=== PATIENT | female | born 1945 | race Caucasian/White ===

== ENCOUNTER 2016-10-03 14:09 | Day surgery (SDC) | payer MEDICARE, BC ==
[~2016-10-03] VITALS: Ht 154.9 cm; Wt 97.7 kg
[2016-10-03] MEDS ORDERED: TOPROL XL100 MG PO (15:13)
[2016-10-03] MEDS ORDERED: COZAAR 50MG50 MG/TAB PO (15:14)
[2016-10-03] MEDS ORDERED: CATAPRES 0.1MG0.1 MG PO (15:14)
[2016-10-03] MEDS ORDERED: NORVASC 5MG5 MG/TAB PO (15:16)
[2016-10-03] MEDS ORDERED: APRESOLINE 25MG25 MG PO (15:17)
[2016-10-03] MEDS ORDERED: DEMADEX100 MG PO (15:17)
[2016-10-03] MEDS ORDERED: AMARYL4 MG PO (15:18)
[2016-10-03] MEDS ORDERED: VICTOZA6 MG/ML SQ (15:19)
[2016-10-03] MEDS ORDERED: LANTUS SOLOS100 U/ML SQ (15:20)
[2016-10-03] MEDS ORDERED: GLUCOPHAGE500 MG/TAB PO (15:21)
[2016-10-03] MEDS ORDERED: ZOFRAN ODT4 MG PO (15:21)
[2016-10-03] MEDS ORDERED: CRESTOR 10MG10 MG PO (15:22)
[2016-10-03] MEDS ORDERED: CEPHALEXIN500 M1 PO (15:23)
[2016-10-03] MEDS ORDERED: ULORIC40 MG PO (15:23)
[2016-10-03] MEDS ORDERED: TYLENOL 500MG500 MG PO (15:24)
[2016-10-03] MEDS ORDERED: PEPCID AC 10MG10 MG PO (15:24)
[2016-10-03] MEDS ORDERED: MULTI VITAMINS1 TAB PO (15:25)
[2016-10-03] MEDS ORDERED: CO Q-1010 M1 PO (15:26)
[2016-10-03] MEDS ORDERED: ALPHA LIPOIC A200 M2 PO (15:27)
[2016-10-03 16:28] VITALS: BP 155/91; PULSE 82; TEMP 98
[2016-10-03 19:30] VITALS: BP 141/53; PULSE 87
[2016-10-03 19:45] VITALS: BP 146/49; PULSE 83
[2016-10-03 20:00] VITALS: BP 138/54; PULSE 90
[2016-10-03 20:15] VITALS: BP 138/58; PULSE 90
[2016-10-03 20:30] VITALS: BP 133/66; PULSE 96
[2016-10-04 02:39] VITALS: BP 129/58; PULSE 95; TEMP 98.4
[2016-10-04 06:09] VITALS: BP 124/57; PULSE 88; TEMP 98.3
[2016-10-04 09:35] VITALS: BP 146/73; PULSE 87
[2016-10-04] MEDS ORDERED: NORCO 325 MG-51 TAB PO (10:53)
== END 2016-10-04 11:40 | disposition home or self-care (01) ==
LOC: SDCO 14:09 → SURG 19:02 → SDCO 10-04 11:40
PROVIDERS: Surgery
PROC: 0FT44ZZ Resection of Gallbladder, Percutaneous Endoscopic Approach (ICD-10-PCS; principal; 2016-10-03 15:00)
DX: K80.10 Calculus of gallbladder with chronic cholecystitis without obstruction (principal); I10 Essential (primary) hypertension; K21.9 Gastro-esophageal reflux disease without esophagitis; M19.90 Unspecified osteoarthritis, unspecified site; K58.9 Irritable bowel syndrome, unspecified; Z86.718 Personal history of other venous thrombosis and embolism; Z86.711 Personal history of pulmonary embolism; E11.9 Type 2 diabetes mellitus without complications; Z79.899 Other long term (current) drug therapy; Z79.84 Long term (current) use of oral hypoglycemic drugs; Z79.82 Long term (current) use of aspirin; Z79.4 Long term (current) use of insulin
CPT/HCPCS: OP; J0690; J1100; J2270; J2405; J2704; J3010; J7030

== ENCOUNTER → 2017-05-29 | Outpatient (CLI) | payer MEDICARE, BC ==
[~2017-05-29] MED LIST: ALPHA LIPOIC A200 M2 PO; AMARYL4 MG PO; APRESOLINE 25MG25 MG PO; CATAPRES 0.1MG0.1 MG PO; CEPHALEXIN500 M1 PO; CO Q-1010 M1 PO; COZAAR 50MG50 MG/TAB PO; CRESTOR 10MG10 MG PO; DEMADEX100 MG PO; GLUCOPHAGE500 MG/TAB PO; LANTUS SOLOS100 U/ML SQ; MULTI VITAMINS1 TAB PO; NORCO 325 MG-51 TAB PO; NORVASC 5MG5 MG/TAB PO; PEPCID AC 10MG10 MG PO; TOPROL XL100 MG PO; TYLENOL 500MG500 MG PO; ULORIC40 MG PO; VICTOZA6 MG/ML SQ; ZOFRAN ODT4 MG PO
== END ==
LOC: SUN.DIA 11-01 10:32
DX: E11.22 Type 2 diabetes mellitus with diabetic chronic kidney disease (principal); E11.40 Type 2 diabetes mellitus with diabetic neuropathy, unspecified; I12.9 Hypertensive chronic kidney disease with stage 1 through stage 4 chronic kidney disease, or unspecified chronic kidney disease; N18.9 Chronic kidney disease, unspecified; Z79.4 Long term (current) use of insulin; E78.5 Hyperlipidemia, unspecified; E66.9 Obesity, unspecified; Z68.41 Body mass index [BMI] 40.0-44.9, adult; Z71.3 Dietary counseling and surveillance
CPT/HCPCS: G0108

== ENCOUNTER → 2017-07-25 | Outpatient (CLI) | payer MEDICARE, BC | LOC: SUN.DIA 07-05 16:53 | DX: E11.40 Type 2 diabetes mellitus with diabetic neuropathy, unspecified (principal); E11.22 Type 2 diabetes mellitus with diabetic chronic kidney disease; N18.9 Chronic kidney disease, unspecified; Z79.4 Long term (current) use of insulin; E78.5 Hyperlipidemia, unspecified; I10 Essential (primary) hypertension; E66.9 Obesity, unspecified; Z68.39 Body mass index [BMI] 39.0-39.9, adult; Z71.3 Dietary counseling and surveillance ==

== ENCOUNTER 2017-10-30 08:32 | Day surgery (SDC) | payer MEDICARE, BC ==
[2017-10-30] VITALS (8 sets, daily range): BP systolic 150–169; BP diastolic 58–65; PULSE 16–84; TEMP 97–98
[~2017-10-30] VITALS: Ht 153.7 cm; Wt 96.2 kg
[2017-10-30] MEDS ORDERED: GLUCOPHAGE500 MG/TAB PO (09:00)
[2017-10-30] MEDS ORDERED: PRILOSEC 20MG20 MG PO (09:01)
[2017-10-30] MEDS ORDERED: PRAVACHOL 20MG20 MG PO (09:01)
[2017-10-30] MEDS ORDERED: FLEXERIL 1010 MG/TAB PO (09:02)
[2017-10-30] MEDS ORDERED: NYSTATIN POWDER15 GM TOP (09:06)
[2017-10-31 00:30] VITALS: BP 154/73; PULSE 87; TEMP 98.2
[2017-10-31 05:16] VITALS: BP 162/91; PULSE 81; TEMP 98.3
[2017-10-31 07:20] VITALS: BP 150/64; PULSE 74; TEMP 97.9
[2017-10-31] MEDS ORDERED: XARELTO10 MG PO (07:23)
[2017-10-31] MEDS ORDERED: NORCO 325 MG-7.1 TAB PO (07:25)
[2017-10-31] MEDS ORDERED: ULTRAM 50MG TAB50 MG PO (07:30)
[2017-10-31 11:57] VITALS: BP 119/51; PULSE 72; TEMP 97.5
== END 2017-10-31 15:40 | disposition home or self-care (01) ==
LOC: SDCO 08:32 → JCC 16:30 → SDCO 10-31 15:40
DX: M75.121 Complete rotator cuff tear or rupture of right shoulder, not specified as traumatic (principal); M75.41 Impingement syndrome of right shoulder; M75.80 Other shoulder lesions, unspecified shoulder; M25.511 Pain in right shoulder; G89.18 Other acute postprocedural pain; E11.42 Type 2 diabetes mellitus with diabetic polyneuropathy; Z79.4 Long term (current) use of insulin; Z79.01 Long term (current) use of anticoagulants; I10 Essential (primary) hypertension; E78.2 Mixed hyperlipidemia; K21.9 Gastro-esophageal reflux disease without esophagitis; M10.9 Gout, unspecified; Z86.711 Personal history of pulmonary embolism; Z85.43 Personal history of malignant neoplasm of ovary; M81.0 Age-related osteoporosis without current pathological fracture; M19.90 Unspecified osteoarthritis, unspecified site; Z87.891 Personal history of nicotine dependence; Z83.3 Family history of diabetes mellitus; Z82.49 Family history of ischemic heart disease and other diseases of the circulatory system; Z88.6 Allergy status to analgesic agent; Z88.1 Allergy status to other antibiotic agents; Z88.5 Allergy status to narcotic agent; Z91.040 Latex allergy status; Z88.8 Allergy status to other drugs, medicaments and biological substances; Z96.652 Presence of left artificial knee joint; J32.8 Other chronic sinusitis; R20.2 Paresthesia of skin; Z92.21 Personal history of antineoplastic chemotherapy
CPT/HCPCS: OP; 99222; A9284; C1713; G8987-GO; G8988-GO; J0690; J1815; J2270; J2405; J2704; J2710; J3010; J7030

== ENCOUNTER → 2018-02-06 | Outpatient (CLI) | payer MEDICARE, BC ==
[~2018-02-06] MED LIST changes: +FLEXERIL 1010 MG/TAB PO; +NORCO 325 MG-7.1 TAB PO; +NYSTATIN POWDER15 GM TOP; +PRAVACHOL 20MG20 MG PO; +PRILOSEC 20MG20 MG PO; +ULTRAM 50MG TAB50 MG PO; +XARELTO10 MG PO
== END ==
LOC: SUN.DIA
DX: E11.40 Type 2 diabetes mellitus with diabetic neuropathy, unspecified (principal); E11.22 Type 2 diabetes mellitus with diabetic chronic kidney disease; I12.9 Hypertensive chronic kidney disease with stage 1 through stage 4 chronic kidney disease, or unspecified chronic kidney disease; N18.9 Chronic kidney disease, unspecified; Z79.4 Long term (current) use of insulin; E78.5 Hyperlipidemia, unspecified; E66.9 Obesity, unspecified; Z68.37 Body mass index [BMI] 37.0-37.9, adult; Z71.3 Dietary counseling and surveillance

== ENCOUNTER → 2018-06-11 | Outpatient (CLI) | payer MEDICARE, BC | LOC: SUN.DIA 08:47 | DX: E11.40 Type 2 diabetes mellitus with diabetic neuropathy, unspecified (principal); E78.5 Hyperlipidemia, unspecified; I10 Essential (primary) hypertension; E66.9 Obesity, unspecified | CPT/HCPCS: G0108 ==

== ENCOUNTER → 2018-10-15 | Outpatient (CLI) | payer MEDICARE, BC | LOC: SUN.DIA 10-09 07:53 | DX: E11.40 Type 2 diabetes mellitus with diabetic neuropathy, unspecified (principal); E78.5 Hyperlipidemia, unspecified; I10 Essential (primary) hypertension; E66.9 Obesity, unspecified | CPT/HCPCS: G0108 ==

== ENCOUNTER 2022-11-22 10:35 | Outpatient (CLI) | payer MEDICARE, BC ==
[~2022-11-22] VITALS: Ht 153.8 cm; Wt 92.1 kg
[~2022-11-22 10:35] MED LIST changes: +NORVASC 10MG10 MG PO; -NORVASC 5MG5 MG/TAB PO
[2022-11-22 11:24] LABS: HEMATOCRIT 37.5 % (37.0-47.0); HEMOGLOBIN 11.7 g/dl (12.5-16.0); MEAN CELL VOLUME 92 fl (80.0-100.0); MEAN CORPUSCULAR HEMOGLOBIN 29 pg (27-31); MEAN CORPUSCULAR HGB CONC 31 g/dl (33.0-37.0); PLATELET COUNT 260 K/mm3 (130-400); RED BLOOD COUNT 4.07 M/mm3 (4.10-5.30); REDCELL DISTRIBUTION WIDTH-CV 13.2 % (11.5-14.5)
[2022-11-22 11:34] LABS: PROTHROMBIN TIME 11.2 SECONDS (9.7-12.8)
[2022-11-22] MEDS ORDERED: ROBAXIN 50500 MG/TAB PO (12:08)
[2022-11-22] MEDS ORDERED: ARICEPT10 MG PO (12:10)
[2022-11-22] MEDS ORDERED: VITAMIN D31000 I1 PO (12:11)
[2022-11-22] MEDS ORDERED: SINEMET 25/101 UDTAB PO (12:12)
[2022-11-22] MEDS ORDERED: MYSOLINE 5050 MG/TAB PO (12:14)
[2022-11-22] MEDS ORDERED: PREVALITE4 GM/5.5 G PO (12:14)
[2022-11-22] MEDS ORDERED: FARXIGA10 PO (12:17)
[2022-11-22] MEDS ORDERED: SINGULAIR 110 MG/TAB PO (12:18)
[2022-11-22] MEDS ORDERED: LASIX 40MG TABL40 MG PO (12:18)
[2022-11-22] MEDS ORDERED: LIVALO1 MG PO (12:21)
[2022-11-22] MEDS ORDERED: VICTOZA6 MG/ML SQ (12:22)
[2022-11-22] MEDS ORDERED: PROLIA60 MG/ML SQ (12:23)
[2022-11-22 12:27] LABS: CALCIUM 9.6 mg/dL (8.4-10.2); CREATININE, serum 1.6 mg/dL (0.57-1.11); POTASSIUM 4.9 mmol/L (3.5-4.5)
[2022-11-22] MEDS ORDERED: FIRVANQ25 MG/1 ML PO (12:29)
[2022-11-22] MEDS ORDERED: CHROMIUM PICOLI1 TA8 PO (12:30)
[2022-11-22] MEDS ORDERED: DIPROLENE CR15GM TP (12:30)
[2022-11-22] MEDS ORDERED: MELATIN 3 MG-11 TAB PO (12:31)
[2022-11-22] MEDS ORDERED: PROAIR HFA0.09 MG/AC IH (12:31)
[2022-11-22] MEDS ORDERED: TESSALON P100 MG/CAP PO (12:32)
[2022-11-22] MEDS ORDERED: [UNRECOGNIZED DRUG - OTHER] IH (12:34)
[2022-11-22 12:35] VITALS: BP 130/66; PULSE 73; TEMP 98.1
[2022-11-22 13:07] VITALS: BP 134/70; PULSE 76
[2022-11-22 13:15] VITALS: BP 120/68; PULSE 76
--- NOTE | 2022-11-22 13:18 | NUR ---
Report from Sirena Bullard.
[2022-11-22 13:30] VITALS: BP 121/63; PULSE 72
[2022-11-22 13:45] VITALS: BP 130/66; PULSE 73
[2022-11-22 14:00] VITALS: BP 130/63; PULSE 67
--- NOTE | 2022-11-22 14:39 | NUR ---
Discharge instructions given to pt.Pt verbalizes understanding.Pt escorted out via wheelchair by this nurse.
== END 2022-11-22 15:48 ==
LOC: COL.RAD 10:35
PROVIDERS: Internal Medicine Cardiovascular Disease
DX: I35.2 Nonrheumatic aortic (valve) stenosis with insufficiency (principal); I34.0 Nonrheumatic mitral (valve) insufficiency
CPT/HCPCS: J2704

== ENCOUNTER 2023-11-19 07:32 | Day surgery (SDC) | payer MEDICARE, BC ==
[2023-11-19] VITALS (9 sets, daily range): BP systolic 143–179; BP diastolic 50–83; PULSE 56–72; TEMP 97–98.7
[~2023-11-19] VITALS: Ht 154.9 cm; Wt 84.6 kg
[~2023-11-19 07:32] MED LIST changes: +ALPHA LIPOIC A600 M1 PO; +ARICEPT10 MG PO; +ASPIRIN 81M81 MG/TA2 PO; +CARAFATE 1GM1 G PO; +CHROMIUM PICOLI1 TA8 PO; +COZAAR100 MG PO; +DIPROLENE CR15GM TP; +FARXIGA10 PO; +FIRVANQ25 MG/1 ML PO; +LASIX 20MG TABL20 MG PO; +LASIX 40MG TABL40 MG PO; +LIVALO1 MG PO; +MELATIN 3 MG-11 TAB PO; +MYSOLINE 5050 MG/TAB PO; +NS 1,000 ML IV SCH; +PREVALITE4 GM/5.5 G PO; +PROAIR HFA0.09 MG/AC IH; +PROLIA60 MG/ML SQ; +PROTONIX 40MG T40 MG PO; +ROBAXIN 50500 MG/TAB PO; +SINEMET 25/101 UDTAB PO; +SINGULAIR 110 MG/TAB PO; +TESSALON P100 MG/CAP PO; +VITAMIN D31000 I1 PO; +[UNRECOGNIZED DRUG - OTHER] IH
[2023-11-19] MEDS ORDERED: dexAMETHasone 10 MG/ML VIAL ONE (08:15)
[2023-11-19] MEDS ORDERED: Sodium Bicarbonate 8.4% 50 MEQ/50 ML SYRINGE IV ONE (08:15)
[2023-11-19] MEDS ORDERED: CATAPRES 0.1MG0.1 MG PO (08:53)
[2023-11-19] MEDS ORDERED: AMARYL4 MG PO (08:56)
[2023-11-19] MEDS ORDERED: BENEFIBER PO (08:57)
[2023-11-19] MEDS ORDERED: MIRALAX PA17 GM/Dose PO (08:57)
[2023-11-19] MEDS ORDERED: B-121000 MCG PO (08:58)
[2023-11-19] MEDS ORDERED: Tranexamic Acid 1,000 MG/10 ML VIAL ONE (09:09)
[2023-11-19] MEDS ORDERED: NS 10 ML IV ONE (09:09)
[2023-11-19] MEDS ORDERED: Ondansetron 4 MG/2 ML VIAL ONE (09:09)
[2023-11-19] MEDS ORDERED: Ondansetron 4 MG/2 ML VIAL IV PRN (09:30)
[2023-11-19] MEDS ORDERED: fentaNYL 50 MCG/ML 1 ML SYRINGE/VIAL [PACU/SDC ONLY] IV PRN (09:30)
[2023-11-19] MEDS ORDERED: Meperidine 50 MG/ML 1 ML VIAL IV PRN (09:30)
[2023-11-19] MEDS ORDERED: droPERidol 2.5 MG/ML 2 ML VIAL IV PRN (09:30)
[2023-11-19] MEDS ORDERED: HYDROmorphone 1 MG/1 ML SYRINGE [PACU/SDC ONLY] IV PRN ×2 (09:30)
[2023-11-19] MEDS ORDERED: hydrALAZINE 20 MG/ML 1 ML VIAL IV PRN (09:30)
--- NOTE | 2023-11-19 09:33 | NUR ---
Pt arrived with for procedure, VSS and WNL, RR even and unlabored, personal rollator walker with pt, IV placed by US by Dequan GASTON; reviewed and signed consents, no questions/concerns; reviewed pharm/meds/history/allergies.
[2023-11-19] MEDS ORDERED: Midazolam 2 MG/2 ML VIAL ONE (09:51)
[2023-11-19] MEDS ORDERED: Thrombin Human (Recombinant) 5,000 UNITS VIAL TP ONE (10:29)
[2023-11-19] MEDS ORDERED: Morphine 4 MG/ML VIAL SQ ONE (10:29)
[2023-11-19] MEDS ORDERED: Magnes Hydrox (MOM) 80 MG/ML 30 ML CUP PO PRN (10:30)
[2023-11-19] MEDS ORDERED: Mag/Al Hydrox/Simeth Susp 30 ML CUP PO PRN (10:30)
[2023-11-19] MEDS ORDERED: Naloxone 0.4 MG/ML VIAL IV PRN (10:30)
[2023-11-19] MEDS ORDERED: Acetaminophen 500 MG TAB PO PRN (10:30)
[2023-11-19] MEDS ORDERED: Morphine 4 MG/ML VIAL IV PRN (10:30)
[2023-11-19] MEDS ORDERED: Bisacodyl 5 MG TAB PO PRN (10:30)
[2023-11-19] MEDS ORDERED: NS 1,000 ML IV SCH (10:30)
--- NOTE | 2023-11-19 12:42 | NUR ---
PT TO ROOM 330 PER BED WITH REPORT FROM JARED GASTON PACU @6720. PT RESTING IN BED. VSS, ASSESSMENTS COMPLETE. LUNGS CTA, BOWEL SOUNDS PRESENT. PT ON GENERAL DIET. DRESSING TO RIGHT KNEE CDI . IV TO .
[2023-11-19] MEDS ORDERED: Acetaminophen 500 MG TAB PO SCH (14:00)
[2023-11-19] MEDS ORDERED: Insulin Lispro (HumaLOG) SQ SCH (17:00)
[2023-11-19] MEDS ORDERED: Ketorolac 15 MG/ML VIAL IV SCH (17:00)
[2023-11-19] MEDS ORDERED: ceFAZolin 2 G in Water For Injection,Sterile 20 ML IV SCH (17:00)
--- NOTE | 2023-11-19 19:28 | NUR ---
report received from olive hernandez. pt resting in bed finishing dinner. pt denies pain. fall precautions in place. call light in reach. alll needs met at this time.
[2023-11-19] MEDS ORDERED: Sennosides/Docusate 8.6-50 MG TAB PO SCH (21:00)
[2023-11-19] MEDS ORDERED: Insulin Glargine-ygfn (Lantus) SQ SCH (21:00)
[2023-11-19] MEDS ORDERED: Montelukast 10 MG TAB PO SCH (21:00)
[2023-11-19] MEDS ORDERED: Losartan 50 MG TAB PO SCH (21:00)
[2023-11-19] MEDS ORDERED: Primidone 50 MG TAB PO SCH (21:00)
[2023-11-19] MEDS ORDERED: Donepezil 5 MG TAB PO SCH (21:00)
[2023-11-19] MEDS ORDERED: Melatonin 3 MG TAB PO PRN (21:00)
[2023-11-19] MEDS ORDERED: Atorvastatin 10 MG TAB PO SCH (21:00)
[2023-11-19] MEDS ORDERED: [UNRECOGNIZED DRUG - REMARK] PO SCH (21:00)
[2023-11-19] MEDS ORDERED: cloNIDine 0.1 MG TAB PO SCH (21:00)
[2023-11-19] MEDS ORDERED: Ascorbic Acid 500 MG TAB PO SCH (21:00)
--- NOTE | 2023-11-19 22:17 | NUR ---
shift assessment complete, see documentation. pt tolerated hs meds well. pt c/o 6/10 right knee pain, prn norco administered per orders. pt reported prn administered provided relief and pain is now rated 2/10. pt resting in bed. call light in reach. all needs met at this time.
[2023-11-20] VITALS: BP 102/69; PULSE 76; TEMP 98.6
[2023-11-20 03:36] VITALS: BP 132/69; PULSE 73; TEMP 98.1
[2023-11-20] MEDS ORDERED: Dextrose (Glucose) 15 GM (4 x 3.75 GM) Chewable TABLET PACK PO PRN (07:15)
[2023-11-20] MEDS ORDERED: Dextrose 50% Water 25 GM/50 ML SYRINGE IV PRN (07:15)
[2023-11-20] MEDS ORDERED: Glucagon 1 MG VIAL IM PRN (07:15)
[2023-11-20 07:35] VITALS: BP 154/73; PULSE 56; TEMP 98.1
[2023-11-20] MEDS ORDERED: Rivaroxaban 10 MG TAB PO SCH (09:00)
[2023-11-20] MEDS ORDERED: Magnes Hydrox (MOM) 80 MG/ML 30 ML CUP PO SCH (09:00)
[2023-11-20] MEDS ORDERED: amLODIPine 10 MG TAB PO SCH (09:00)
--- NOTE | 2023-11-20 09:00 | NUR ---
PT RESTING IN BED WITH PAIN 7/10 IN RIGHT KNEE, PAIN MEDICATION PROVIDED PER EMAR. PT AMBULATED TO BATHROOM WITH STEADY GAIT, WALKER, AND SBA. PT TOELRATING DEIT WELL, A/O X4, AT BEDSIDE. BULKY DRESSING TO RIGHT KNEE CLEAN AND DRY. NO NEEDS AT THIS TIME. AWAITING PT/OT. WLL CONTINUE TO MONITOR.
[2023-11-20] MEDS ORDERED: VITAMIN D 400400 IU PO (10:03)
[2023-11-20] MEDS ORDERED: ZOFRAN 4MG T4 MG/TAB PO (10:04)
--- NOTE | 2023-11-20 11:21 | NUR ---
D: Initial visit: Translation Director stopped by room on rounds. A: Pt was resting and content. Pt has no needs right now. P: Translation Director informed pt that if she needed anything from the automatic thread winder area to let her nurse know. Translation Director will follow up as needed.
--- NOTE | 2023-11-20 11:39 | NUR ---
Pantograph Operator attended clinical rounds. Met with patient at bedside to discuss discharge planning. Patient verified that she lives in [place] with her Greg ([phone]). Patient lists her cousin Christiano ([phone]) as contact manager. Patient states she named her Greg and cousin Deep as her DPOA. Patient sees Dr. Lancaster as her PCP, uses [facility]. Patient has ramps at her home for entry, grab bars and roll in shower, uses a rollator walker. Patient states that due to Parkinson's she's taken steps to ensure safety in her home. Patient reports having OP therapy scheduled prior to surgery. She identifies no other needs for discharge and hopes to return home today. Discharge plan: Home with OP therapy
[2023-11-20 12:03] VITALS: BP 152/87; PULSE 63; TEMP 98.2
[2023-11-20 12:26] LABS: HEMOGLOBIN 11.2 g/dl (12.5-16.0)
[2023-11-20 12:46] LABS: CALCIUM 8.5 mg/dL (8.4-10.2); CREATININE, serum 1.86 mg/dL (0.57-1.11); POTASSIUM 4.4 mEq/L (3.5-4.5)
[2023-11-20 12:52] LABS: HEMATOCRIT 33.7 % (37.0-47.0)
[2023-11-20 17:25] VITALS: BP 146/75; PULSE 62; TEMP 98.3
[2023-11-20] MEDS ORDERED: ASPIRIN 81M81 MG/TA2 PO (17:41)
[2023-11-20] MEDS ORDERED: CEPHALEXIN500 M1 PO (17:41)
[2023-11-20] MEDS ORDERED: NORCO 325 MG-51 TAB PO (17:41)
--- NOTE | 2023-11-20 18:20 | NUR ---
DISCHARGE INSTRUCTIONS PROVIDED TO PT AND . DISCUSSED FOLLOW UP APPOINTMENTS, NEW MEDICATIONS, AND SIGNS OF INFECTION. AQUACELL DRESSING APPLIED PER ORDERS. IV REMOVED. NO QUESTIONS AT THIS TIME. PT AND BELONGINGS ESCORTED OUT OF BUILDING AT THIS TIME.
== END 2023-11-20 18:20 | disposition home or self-care (01) ==
LOC: SDCO 07:32 → SURG 12:15 → SDCO 11-20 18:20 → SURG 11-20 18:20
PROVIDERS: Internal Medicine
DX: M17.11 Unilateral primary osteoarthritis, right knee (principal); E11.22 Type 2 diabetes mellitus with diabetic chronic kidney disease; I12.9 Hypertensive chronic kidney disease with stage 1 through stage 4 chronic kidney disease, or unspecified chronic kidney disease; E78.5 Hyperlipidemia, unspecified; N18.32 Chronic kidney disease, stage 3b; G20.A1 Parkinson's disease without dyskinesia, without mention of fluctuations; F02.80 Dementia in other diseases classified elsewhere, unspecified severity, without behavioral disturbance, psychotic disturbance, mood disturbance, and anxiety; K21.9 Gastro-esophageal reflux disease without esophagitis; J45.909 Unspecified asthma, uncomplicated; Z98.890 Other specified postprocedural states; G47.00 Insomnia, unspecified; G25.0 Essential tremor; Z85.43 Personal history of malignant neoplasm of ovary; G89.18 Other acute postprocedural pain; Z79.4 Long term (current) use of insulin; Z79.84 Long term (current) use of oral hypoglycemic drugs; Z79.899 Other long term (current) drug therapy; Z95.2 Presence of prosthetic heart valve
CPT/HCPCS: OP; A9284; C1713; C1776; J0665; J0690; J1100; J1580; J1815; J2250; J2270; J2405; J2704; J2795; J7030

== ENCOUNTER 2024-04-03 07:13 | Day surgery (SDC) | payer MEDICARE, BC ==
[2024-04-03] VITALS (7 sets, daily range): BP systolic 178–194; BP diastolic 74–85; PULSE 63–73; TEMP 97.3
[~2024-04-03] VITALS: Ht 152.4 cm; Wt 80.3 kg
[~2024-04-03 07:13] MED LIST changes: +B-121000 MCG PO; +BENEFIBER PO; +D3-5050000 IU PO; +LR 1,000 ML IV SCH; +MIRALAX PA17 GM/Dose PO; -NS 1,000 ML IV SCH; +ZOFRAN 4MG T4 MG/TAB PO
[2024-04-03] MEDS ORDERED: NS Flush 10 ML SYRINGE PRN ICA (07:30)
[2024-04-03] MEDS ORDERED: 1/2 NS 1,000 ML IV SCH (07:30)
[2024-04-03 08:34] LABS: MEAN CELL VOLUME 97 fl (80.0-100.0); MEAN CORPUSCULAR HGB CONC 32 g/dl (33.0-37.0); MEAN PLATELET VOLUME 10.2 fl (7.4-10.4); PLATELET COUNT 278 K/mm3 (130-400); RED BLOOD COUNT 3.08 M/mm3 (4.10-5.30); REDCELL DISTRIBUTION WIDTH-CV 13.5 % (11.5-14.5)
[2024-04-03 08:38] LABS: HEMATOCRIT 29.9 % (37.0-47.0); HEMOGLOBIN 9.7 g/dl (12.5-16.0); MEAN CORPUSCULAR HEMOGLOBIN 31 pg (27-31)
[2024-04-03] MEDS ORDERED: LR 1,000 ML IV SCH (08:45)
[2024-04-03 08:53] LABS: CALCIUM 9.1 mg/dL (8.4-10.2); CREATININE, serum 1.64 mg/dL (0.57-1.11); POTASSIUM 5.1 mEq/L (3.5-4.5)
[2024-04-03] MEDS ORDERED: NS Flush 10 ML SYRINGE BID ICA SCH (09:00)
[2024-04-03] MEDS ORDERED: Lidocaine PF 2% (20 MG/ML) 5 ML VIAL ONE (09:04)
[2024-04-03] MEDS ORDERED: Phenylephrine 10 MG/ML VIAL ONE (09:04)
[2024-04-03] MEDS ORDERED: NS 100 ML IV ONE (09:04)
[2024-04-03 09:12] LABS: PROTHROMBIN TIME 11.4 SECONDS (9.7-12.8)
[2024-04-03] MEDS ORDERED: MAG-OX 400400 MG/TAB PO (09:22)
[2024-04-03] MEDS ORDERED: PLAVIX 75MG TAB75 MG PO (09:22)
[2024-04-03] MEDS ORDERED: CALCIUM CITRATE1 TA4 PO (09:23)
[2024-04-03] MEDS ORDERED: ALPHA LIPOIC A600 M1 PO (09:31)
[2024-04-03] MEDS ORDERED: AMOXICILLIN 50500 MG PO (09:32)
[2024-04-03] MEDS ORDERED: DIPROLENE AF GEL15GM TP (09:33)
[2024-04-03] MEDS ORDERED: CATAPRES 0.1MG0.1 MG PO (09:34)
[2024-04-03] MEDS ORDERED: CYANOCOBAL1000 MCG/M IM (09:35)
[2024-04-03] MEDS ORDERED: FLEXERIL5 MG PO (09:36)
[2024-04-03] MEDS ORDERED: ATROVENTNS0.03% NS (09:40)
[2024-04-03] MEDS ORDERED: LANTUS SOLOS100 U/ML SQ (09:40)
[2024-04-03] MEDS ORDERED: FLORAJEN A20 Billion PO (09:42)
--- NOTE | 2024-04-03 11:55 | NUR ---
Discharge instructions collin to pt.Pt verbalizes understanding.pt reports her BP medication is due and she has it in the car to take upon discharge.Pt escorted out via wheelchair by this nurse.
--- NOTE | 2024-04-03 12:24 | NUR ---
Pt reports he bp medication is due and she has it in the car and she will take upon discharge.See flowsheet for vitals.
== END 2024-04-03 12:27 ==
LOC: COL.CAR 07:13
PROVIDERS: Internal Medicine Cardiovascular Disease
DX: I34.0 Nonrheumatic mitral (valve) insufficiency (principal); Z95.2 Presence of prosthetic heart valve; Z86.711 Personal history of pulmonary embolism; Z85.828 Personal history of other malignant neoplasm of skin; Z85.43 Personal history of malignant neoplasm of ovary
CPT/HCPCS: J2371; J2704